=== PATIENT | male | born 1955 | race Caucasian/White ===

== ENCOUNTER 2020-06-30 19:01 | Emergency (ER) | payer MEDICARE, OTHER, SELFPAY ==
[2020-06-30 19:02] VITALS: BP 139/81; PULSE 97; RESP 16; TEMP 37.2; O2SAT 97; BMI 32.1
--- NOTE | 2020-06-30 19:18 | CT_ITS ---
PROCEDURE: CT ABDOMEN PELVIS W CON CLINICAL INDICATION: abd pain Mid abdominal pain with vomiting COMPARISON: No exams were available for comparison TECHNIQUE: IV Contrast: 75ML Isovue 370 Oral Contrast None Axial images obtained with sagittal and coronal reformats. All CT scans at the facility use one or more dose reduction, viz: automated exposure control, ma/kV adjustment per patient size (including targeted exams where dose is matched to indication, i.e. head), or iterative reconstruction technique. FINDINGS: LOWER THORAX: Atelectasis or scarring within the lingula. ABDOMEN & PELVIS: Fatty liver. Contracted gallbladder with enhancing versus hyperdense 8 mm ovoid lesion in the gallbladder on image 33 series 4. There is some mild stranding of the pericholecystic inferiorly and medially. The spleen, adrenal glands, and pancreas have an unremarkable appearance. There are 3 right renal cysts the largest in the lower pole at 7.7 cm. 2.3 cm left renal cyst noted in the lower pole. No renal or ureteral calculi. No hydronephrosis. No intestinal obstruction or free air. No evidence of appendicitis. There is colonic diverticulosis but no evidence of diverticulitis. There is tortuosity and ectasia of the infrarenal abdominal aorta with calcific plaque. The aorta measures up to 2.6 cm in AP dimension. Tortuosity/ectasia and calcific plaque also noted involving the iliac arteries. There is fusion of the SI joint superiorly. Degenerative changes lumbar spine. Small umbilical hernia containing fat. IMPRESSION: 1. Contracted gallbladder with enhancing versus hyperdense nodule in the posterior body of the gallbladder. There is also some mild stranding of the pericholecystic fat. Gallbladder ultrasound suggested for further evaluation. 2. Colonic diverticulosis. No evidence of diverticulitis. 3. Other nonacute incidental findings as detailed above. Dictated by: Conner Wade MD 07/01/2020 07:05 Conner Wade MD in [place] 07/01/2020 07:05
[2020-06-30 19:32] LABS: Basophils # 0.1 K/mm3 (0-0.2); Basophils % 0.5 % (0.1-2.0); Eosinophils # 0.1 K/mm3 (0.0-0.4); Eosinophils % 0.8 % (0.1-12.0); Hematocrit 43.3 % (42.0-52.0); Hemoglobin 13.9 g/dL (14.1-18.0); Lymphocytes # 1.4 K/mm3 (0.7-4.5); Mean Corpuscular HGB Conc 32.1 g/dL (31.8-35.4); Mean Corpuscular Hemoglobin 30.5 pg (27.0-31.2); Mean Platelet Volume 7.3 fl (7.4-10.4); Monocytes # 0.7 K/mm3 (0.1-1.0); Monocytes % 6.5 % (1.7-9.3); Neutrophils # 8.4 K/mm3 (1.8-7.8); Neutrophils % 79.3 % (37.0-80.0); Platelet Count 225 K/mm3 (142-424); Red Blood Count 4.56 M/mm3 (4.60-6.20); Red Cell Distribution Width 13.4 % (11.5-17.5); White Blood Count 10.6 K/mm3 (4.8-10.8)
[2020-06-30 19:42] LABS: Alanine Aminotransferase 254 U/L (12-78); Albumin Level 4.7 g/dl (3.5-5.0); Albumin/Globulin Ratio 1.5 (1.1-1.8); Alkaline Phosphatase 80 U/L (38-126); Amylase 66 U/L (30-110); Anion Gap 13.6 mEq/L (5-15); Aspartate Amino Transferase 172 U/L (17-59); Bilirubin,Total 1.2 mg/dl (0.2-1.3); Blood Urea Nitrogen 16 mg/dl (9-20); Calcium 9.6 mg/dl (8.4-10.2); Carbon Dioxide 27 mmol/L (22.0-30.0); Chloride 98 mmol/L (98-107); Creatinine Clearance Estimated 115 mL/min (50-200); Estimated Glomerular Filt Rate 75 ml/min (>60); GFR (African American) 91 ML/MIN (>60); Globulin 3.1 g/dL (1.3-3.2); Glucose 146 mg/dl (74-100); Lipase 76 U/L (23-300); Potassium 3.6 mmoL/L (3.5-5.1); Sodium 135 mmol/L (136-145); Total Protein,Serum 7.8 g/dl (6.3-8.2)
[2020-06-30 19:48] LABS: C-Reactive Protein 66.7 mg/L (0-4)
[2020-06-30 19:55] LABS: Erythrocyte Sedimentation Rate 18 mm/hr (0-20)
[2020-06-30 20:01] LABS: Procalcitonin 0.979 ng/mL (0.0-2.0)
--- NOTE | 2020-06-30 21:22 | [facility].EDNVD ---
ED Disposition Clinical Impression: Gallbladder disorder, AAA (abdominal aortic aneurysm) without rupture, Elevated LFTs Abdominal pain Qualifiers: Abdominal location: epigastric Qualified Code(s): R10.13 - Epigastric pain Disposition: Home, Self-Care Condition on Discharge: Good Instructions: DI for Acute Abdominal Pain Additional Instructions: call pcp in am for follow up and more testing Referrals: Max Yip [Primary Care Provider] - - Critical Care Critical Care Time: No Attestation: On 06/30/20, the high probability of a clinically significant, sudden or life threatening deterioration of the following system(s) required my full and direct attention, intervention and personal management. The time I documented below is in addition to time spent performing reported procedures but includes the following listed in this critical care notation. Medical Decision Making - Medical Records Medical records reviewed: Yes: I reviewed the patient's medical records. - Ricki Inquiry Pt receiving controlled substance: No Vital Signs: 06/30/20 19:02 Temperature 99.0 F Temperature Source Oral Pulse Rate [Right] 97 H Respiratory Rate 16 Blood Pressure [Right Arm] 139/81 Blood Pressure Mean [Right Arm] 100 02 Sat by Pulse Oximetry 97 Oxygen Delivery Method Room Air - Lab Data Lab results reviewed: Yes: I reviewed the patient's lab results. Lab Results 06/30/20 19:15: WBC 10.6, RBC 4.56 L, Hgb 13.9 L, Hct 43.3, MCV 95.0 H, MCH 30.5, MCHC 32.1, RDW 13.4, Plt Count 225, MPV 7.3 L, Neut % (Auto) 79.3, Lymph % (Auto) 13.0, Cataño % (Auto) 6.5, Eos % (Auto) 0.8, Baso % (Auto) 0.5, Neut # (Auto) 8.4 H, Lymph # (Auto) 1.4, Cataño # (Auto) 0.7, Eos # (Auto) 0.1, Baso # (Auto) 0.1, ESR 18 06/30/20 19:15: Sodium 135 L, Potassium 3.6, Chloride 98, Carbon Dioxide 27, Anion Gap 13.6, BUN 16, Creatinine 1.00, Estimated Creat Clear 115, Estimated GFR 75, Est GFR ( Amer) 91, Glucose 146 H, Calcium 9.6, Total Bilirubin 1.2, AST 172 H, ALT 254 H, Alkaline Phosphatase 80, C-Reactive Protein 66.7 H, Total Protein 7.8, Albumin 4.7, Globulin 3.1, Albumin/Globulin Ratio 1.5, Amylase 66, Lipase 76, Procalcitonin 0.979 Result diagrams: 06/30/20 19:15 06/30/20 19:15 Orders (Tests/Meds): ED MEDICATIONS Generic Name Dose Route Start Last Admin Trade Name Freq PRN Reason Stop Dose Admin Sodium Chloride 1,000 mls @ 999 mls/hr 06/30/20 19:30 06/30/20 19:32 Sod Chlor 0.9% 1000ml Bag IV 06/30/20 20:30 999 mls/hr .Q1H1M CARRIE Administration Sodium Chloride 8 ml 06/30/20 19:19 Sodium Chloride 0.9% 10ml Vial IV 07/30/20 19:18 NEEDED PRN dilute pepcid Discontinued Medications Generic Name Dose Route Start Last Admin Trade Name Freq PRN Reason Stop Dose Admin Famotidine 20 mg 06/30/20 19:19 06/30/20 19:32 Famotidine 20mg/2ml Vial IV 06/30/20 19:20 20 mg ONCE ONE Administration Iopamidol 75 ml 06/30/20 20:17 06/30/20 20:18 Iopamidol-370 (76%);100ml Bottle IV 06/30/20 20:18 75 ml ONCE ONE Administration Ketorolac Tromethamine 30 mg 06/30/20 19:19 06/30/20 19:32 Ketorolac 30mg/Ml Vial IV 06/30/20 19:20 30 mg ONCE ONE Administration Metoclopramide HCl 10 mg 06/30/20 19:19 06/30/20 19:32 Metoclopramide Hcl 10mg/2ml Vial IVP 06/30/20 19:20 10 mg ONCE ONE Administration Ondansetron HCl 4 mg 06/30/20 19:20 06/30/20 19:32 Ondansetron 4mg/2ml Vial IV 06/30/20 19:21 4 mg ONCE ONE Administration Sodium Chloride 10 ml 06/30/20 20:17 06/30/20 20:18 Sodium Chloride 0.9% 10ml Syr (Rad Only) IV 06/30/20 20:18 10 ml ONCE ONE Administration ORDERS Category Date Time Status CT abdomen pelvis w con Stat Cat Scan 06/30/20 19:18 Taken - CT Data CT Scan: Abdomen, Pelvis Time Received: 21:[address] Reviewed: Yes: I have viewed the radiologist's interpretation Preliminary Findings: Abnormal (see report ) Medical Decision Narrative:
[2020-06-30 21:50] VITALS: BP 134/80; PULSE 79; RESP 14; TEMP 37.1; O2SAT 98
== END 2020-06-30 21:51 | disposition home or self-care (01) ==
PROVIDERS: Emergency Provider Emergency Medicine; PCP Internal Medicine
DX: K82.9 Disease of gallbladder, unspecified (principal); I71.4 Abdominal aortic aneurysm, without rupture; R94.5 Abnormal results of liver function studies; E11.65 Type 2 diabetes mellitus with hyperglycemia
CPT/HCPCS: 74177; 80053; 82150; 83690; 84145; 85025; 85651; 86140; 96375; 99282; J2405; Q9967

== ENCOUNTER 2022-03-27 12:20 | Emergency (ER) | payer MEDICARE, OTHER, SELFPAY ==
--- NOTE | 2022-03-27 13:39 | EXP.UTC ---
Discharge Plan Disposition Patient Disposition: Home, Self-Care Condition: Good Prescriptions Prescriptions: New ondansetron 4 mg tablet,disintegrating 4 mg PO Q8H PRN (Reason: nausea and vomiting) Qty: 10 0RF Referrals Follow up/Referrals: Max Yip [Primary Care Provider] - See instructions Activity Restrictions/Add. Instructions Additional Instructions/Restrictions: Drink extra fluids with and between meals. If you have difficulty drinking, try very small amounts of water or suck on ice chips. ? Avoid fruit juices, as these do not replace minerals and can actually increase diarrhea. ? Children and adults can use sports drinks to replenish electrolytes. Younger children and infants should use products formulated for children, like oral rehydration solutions. ? Eat food in small amounts and let your stomach recover. ? Get lots of rest. You may feel tired or weak. ? No greasy or fried foods for the next 24-48 hours BRAT diet Bananas Rice Apples and [place] ? Make sure to drink plenty of liquids ? Return if needed ? Straight to ER if any life threatening symptoms ? Zofran as prescribed ? Follow up with family doctor in the next 48-72 hours if no improvement or any worsening of symptoms Clinical Impressions Clinical Impression: Nausea & vomiting Instructions Patient Instructions: Nausea and Vomiting-Adult, Ondansetron Discharge ED Provider: [facility] General Stated complaint: Vomiting, Headache Time Seen by Provider: 03/27/22 13:39 History of Present Illness Provider Complaint: Patient states that was up most of the night vomiting and he brought her to be seen and then he started with the vomiting thinks he may have caught a stomach bug from her Denies fever, denies chills states that he is just having some nausea and vomiting Related Data Previous Rx's Medication Instructions Recorded ondansetron 4 mg disintegrating 4 mg PO Q8H PRN nausea and 03/27/22 tablet vomiting #10 tabs Allergies Allergy/AdvReac Type Severity Reaction Status Date / Time codeine Allergy Verified 03/27/22 14:11 [facility] Disclaimer: The information contained in this section may have been updated after the patient was seen, as this information can be updated by other users. Social History Smoking Status: Former smoker alcohol intake: never current occupational status: employed Travel in the last 8 weeks: None ROS Obtained: Yes All systems reviewed & no additional complaints except as documented and Yes Systems reviewed as appropriate & no additional complaints except as documented Constitutional Constitutional: Reports system reviewed and no additional complaints, except as documented and Reports headache(s) (last night) ENT Ears, Nose, Mouth, and Throat: Reports system reviewed and no additional complaints, except as documented, Reports as per HPI and Reports headache(s) (last night) Respiratory Respiratory: Reports system reviewed and no additional complaints, except as documented and Reports as per HPI Gastrointestinal Gastrointestingal: Reports system reviewed and no additional complaints, except as documented, as per HPI, nausea and vomiting Neurologic Neurologic: Reports headache(s) (last night) Physical Exam General General appearance: alert and in no apparent distress ENT ENT exam: Present mucous membranes moist Respiratory Respiratory exam: Present normal lung sounds bilaterally; Absent respiratory distress or wheezes Cardiovascular Cardiovascular exam: Present regular rate, normal rhythm and normal heart sounds Abdominal Exam Abdominal exam: Present soft and normal bowel sounds; Absent distention or tenderness Neurological Exam Neurological exam: Present alert, oriented X3 and normal gait Medical Decision Making Ricki Inquiry Pt receiving controlled substance: No Ricki was queried for this
[2022-03-27 14:10] VITALS: BP 145/90; PULSE 110; RESP 16; TEMP 37.1; O2SAT 98; BMI 33.2
[2022-03-27 14:22] LABS: UTC Influenza A Antigen Negative (Negative); UTC Influenza B Antigen Negative (Negative)
[2022-03-27 15:20] VITALS: BP 145/90; PULSE 110; RESP 16; TEMP 37.1
== END 2022-03-27 15:21 | disposition home or self-care (01) ==
PROVIDERS: Emergency Provider Nurse Practitioner; PCP Internal Medicine
DX: R11.2 Nausea with vomiting, unspecified (principal)
CPT/HCPCS: 87804; 99212; G0463

== ENCOUNTER 2024-08-25 22:18 | Emergency (ER) | payer MEDICARE, OTHER, SELFPAY ==
[2024-08-25 22:31] VITALS: BP 153/92; PULSE 77; RESP 15; TEMP 36.6; O2SAT 94; BMI 33.2
--- NOTE | 2024-08-25 22:58 | XR_ITS ---
PROCEDURE INFORMATION: Exam: XR Right Humerus Exam date and time: 08/25/2024 11:47 PM Age: 69 years old Clinical indication: Injury or trauma; Fall; Blunt trauma (contusions or hematomas); Arm, upper; Right; Additional info: Fall, R shoulder/humerus pain, R hand pain, age>65 TECHNIQUE: Imaging protocol: Radiologic exam of the right humerus. Views: 2 or more views. COMPARISON: CR XR SHOULDER RT MIN 2V 08/25/2024 11:45 PM FINDINGS: Bones/joints: No acute fracture, dislocation or osseous destructive process. Soft tissues: No acute findings or radiopaque foreign body. IMPRESSION: No acute findings.
--- NOTE | 2024-08-25 22:58 | XR_ITS ---
PROCEDURE INFORMATION: Exam: XR Chest Exam date and time: 08/25/2024 11:43 PM Age: 69 years old Clinical indication: Injury or trauma; Fall; Blunt trauma (contusions or hematomas); Additional info: Fall, R shoulder/humerus pain, R hand pain, age>65 TECHNIQUE: Imaging protocol: Radiologic exam of the chest. Views: 2 views. COMPARISON: CT CERVICAL SPINE WO CON 08/25/2024 11:27 PM FINDINGS: Lungs: No acute findings or consolidation. Pleural spaces: No pleural effusion. No pneumothorax. Heart/Mediastinum: No acute findings or cardiomegaly. Bones/joints: No acute findings. IMPRESSION: No acute cardiopulmonary findings.
--- NOTE | 2024-08-25 22:58 | CT_ITS ---
PROCEDURE INFORMATION: Exam: CT Head Without Contrast Exam date and time: 08/25/2024 11:21 PM Age: 69 years old Clinical indication: Injury or trauma; Fall; Blunt trauma (contusions or hematomas); Additional info: Fall, R shoulder/humerus pain, R hand pain, age>65 TECHNIQUE: Imaging protocol: Computed tomography of the head without contrast. Radiation optimization: All CT scans at this facility use at least one of these dose optimization techniques: automated exposure control; mA and/or kV adjustment per patient size (includes targeted exams where dose is matched to clinical indication); or iterative reconstruction. COMPARISON: No relevant prior studies available. FINDINGS: Brain: [id number] atrophy. No intracranial hemorrhage. No mass. Few scattered foci of decreased attenuation within periventricular/subcortical white matter. No edema. Cerebral ventricles: No hydrocephalus. Paranasal sinuses: No acute sinusitis. Mastoid air cells: No significant effusion. Orbital cavities: Unremarkable as visualized. Bones: No acute fracture. Soft tissues: Unremarkable. Vasculature: Atherosclerotic disease of intracranial arteries. IMPRESSION: 1. No intracranial hemorrhage. 2. Probable chronic microvascular ischemic changes.
--- NOTE | 2024-08-25 22:58 | CT_ITS ---
PROCEDURE INFORMATION: Exam: CT Cervical Spine Without Contrast Exam date and time: 08/25/2024 11:27 PM Age: 69 years old Clinical indication: Injury or trauma; Fall; Blunt trauma; Additional info: Fall, R shoulder/humerus pain, R hand pain, age>65 TECHNIQUE: Imaging protocol: Computed tomography of the cervical spine without contrast. Radiation optimization: All CT scans at this facility use at least one of these dose optimization techniques: automated exposure control; mA and/or kV adjustment per patient size (includes targeted exams where dose is matched to clinical indication); or iterative reconstruction. COMPARISON: CT HEAD/BRAIN WO CON 08/25/2024 11:21 PM FINDINGS: Vertebrae: No acute fracture. Normal alignment. Lungs: Emphysematous changes. Vasculature: Atherosclerotic disease of carotid arteries. Soft tissues: Unremarkable. IMPRESSION: No fracture.
--- NOTE | 2024-08-25 22:58 | XR_ITS ---
PROCEDURE INFORMATION: Exam: XR Right Shoulder Exam date and time: 08/25/2024 11:45 PM Age: 69 years old Clinical indication: Injury or trauma; Fall; Blunt trauma (contusions or hematomas); Arm, upper; Right; Additional info: Fall, R shoulder/humerus pain, R hand pain, age>65 TECHNIQUE: Imaging protocol: Radiologic exam of the right shoulder. Views: 2 or more views. COMPARISON: CR Chest 08/25/2024 11:43 PM FINDINGS: Bones/joints: No acute fracture, dislocation or osseous destructive process. Soft tissues: No acute findings or radiopaque foreign body. IMPRESSION: No acute findings.
--- NOTE | 2024-08-25 22:58 | XR_ITS ---
PROCEDURE INFORMATION: Exam: XR Right Hand Exam date and time: 08/25/2024 11:21 PM Age: 69 years old Clinical indication: Injury or trauma; Fall; Blunt trauma (contusions or hematomas); Hand; Right; Additional info: Fall, R shoulder/humerus pain, R hand pain, age>65 TECHNIQUE: Imaging protocol: Radiologic exam of the right hand. Views: 3 or more views. COMPARISON: No relevant prior studies available. FINDINGS: Bones/joints: Small calcification or age indeterminate avulsion fracture along head of third middle phalanx. No dislocation. Soft tissues: Unremarkable. IMPRESSION: Small calcification or age indeterminate avulsion fracture along head of third middle phalanx.
--- NOTE | 2024-08-25 22:58 | XR_ITS ---
PROCEDURE INFORMATION: Exam: XR Right Wrist Exam date and time: 08/25/2024 11:23 PM Age: 69 years old Clinical indication: Injury or trauma; Fall; Blunt trauma (contusions or hematomas); Arm, upper; Right; Additional info: Fall, R shoulder/humerus pain, R hand pain, age>65 TECHNIQUE: Imaging protocol: Radiologic exam of the right wrist. Views: 3 or more views. COMPARISON: CR XR HAND RT MIN 3V 08/25/2024 11:21 PM FINDINGS: Bones/joints: Small linear calcification or age indeterminate avulsion fracture along triquetrum. No dislocation. Soft tissues: Unremarkable. IMPRESSION: Small linear calcification or age indeterminate avulsion fracture along triquetrum.
--- NOTE | 2024-08-25 23:11 | XR_ITS ---
PROCEDURE INFORMATION: Exam: XR Right Knee Exam date and time: 08/25/2024 11:52 PM Age: 69 years old Clinical indication: Injury or trauma; Fall; Blunt trauma; Knee; Right; Additional info: Fall, pain TECHNIQUE: Imaging protocol: Radiologic exam of the right knee. Views: 3 views. COMPARISON: No relevant prior studies available. FINDINGS: Tubes, catheters and devices: No evidence of prosthetic loosening. Bones/joints: Knee prosthesis is identified without associated acute findings. No acute fracture, dislocation or osseous destructive process. Soft tissues: No acute finding or radiopaque foreign body. IMPRESSION: Status post knee prosthesis. No acute findings.
--- NOTE | 2024-08-25 23:11 | XR_ITS ---
PROCEDURE INFORMATION: Exam: XR Right Femur Exam date and time: 08/25/2024 11:54 PM Age: 69 years old Clinical indication: Injury or trauma; Fall; Blunt trauma; Knee; Right; Additional info: Fall, pain TECHNIQUE: Imaging protocol: Radiologic exam of the right femur. Views: 2 views. COMPARISON: CR XR KNEE RT 3V 08/25/2024 11:52 PM FINDINGS: Bones/joints: Status post knee prosthesis. No acute fracture, dislocation or osseous destructive process. Soft tissues: No acute findings or radiopaque foreign body. IMPRESSION: 1. No acute findings. 2. Status post right knee prosthesis.
--- NOTE | 2024-08-25 23:15 | ED_ITS ---
Discharge Plan Disposition Patient Disposition: Home, Self-Care Condition: Good Prescriptions Prescriptions: No Action ondansetron 4 mg tablet,disintegrating 4 mg PO Q8H PRN (Reason: nausea and vomiting) Qty: 10 0RF Referrals Follow up/Referrals: Max Yip [Primary Care Provider, Medical] - See instructions Henry Mustafa DO [Staff Physician, Orthopedics] - See instructions Referral Note: R shoulder pain after fall, suspect rotator cuff Activity Restrictions/Add. Instructions Additional Instructions/Restrictions: You were evaluated in the ER and are believed to be appropriate for discharge at this time. Take Tylenol or ibuprofen if needed for aches and pains, do not exceed the recommended dose on the bottle. Drink water and eat a small snack each time you take these medications to avoid side effects. As discussed you could also try [id number] Salonpas patches. Call Dr. Mustafa's office and make an appointment for reevaluation of the right shoulder. Also make an appointment with your primary care doctor for reevaluation. Return to the ER with any new, worsening, or otherwise concerning symptoms. Clinical Impressions Clinical Impression: Fall, Acute pain of right shoulder Print Language Print Language: Irish Discharge ED Provider: Lenka Medina General Adult HPI <Radha Huertas DO - Last Filed: 08/25/24 23:18> General Chief complaint: Fall Stated complaint: A/O fell on concrete hurt rt shoulder, rt knee Time Seen by Provider: 08/25/24 22:35 Mode of Arrival: Ambulatory Source of Information: Patient and Spouse Description of Symptoms (Recalled from ER Triage Doc. by RN): Patient ambulatory to ED with fall approx 2030 in parking lot of grocery store. Patient states that his shopping cart started to roll away from him and he started to jeffrey after it when he tripped on concrete and fell on right side. Patient denies hitting head, but landed on right shoulder and knee. Patient with abrasion to right knee, and limited ROM to right shoulder. Pain 5/10. Denies taking blood thinners at this time. History of Present Illness HPI narrative: This patient is a 69-year-old male with history of CAD status post tenting on aspirin presenting to the emergency department for evaluation concern for right shoulder pain, difficulty externally rotating his right arm, right hand pain, and right knee pain after mechanical ground-level fall. Patient reports that his grocery cart got away from him at the store around 8:30 PM, and he ran after it. He states that he tripped and fell on the concrete, landing mostly on his right side. He did not hit his head or lose consciousness. He complains of right shoulder pain and right knee pain. He is still able to ambulate with intact range of motion. No numbness, tingling, or other concerns. Related Data Previous Rx's ?Medication ?Instructions ?Recorded ondansetron 4 mg disintegrating 4 mg PO Q8H PRN nausea and 03/27/22 tablet vomiting #10 tabs Allergies Allergy/AdvReac Type Severity Reaction Status Date / Time codeine Allergy Verified 03/27/22 14:11 [facility] <Radha Huertas DO - Last Filed: 08/25/24 23:18> [facility] Disclaimer: The information contained in this section may have been updated after the patient was seen, as this information can be updated by other users. Social History Smoking Status: Former smoker alcohol intake: never current occupational status: employed Travel in the last 8 weeks?: None Have you lived/traveled outside [place] in past 30 days?: No Contact w/someone who lives/traveled outside [place] past 30 days?: No Exposure to someone with infectious disease in past 14 days?: No Do you have a fever (greater than 100.4 F or 38 C)?: No Have you tested positive for COVID-19?: No Exposed to someone with COVID-19 in past 14 days?: No Do you have a sore throat?: No Do you have a cough?: No Do you have any weakness?: No Do you have any diarrhea?: No Are you experiencing any unusual bleeding?: No Do you have any muscle aches/pain?: No Do you have any abdominal pain?: No Are you experiencing loss of taste or smell?: No Other Medical History Have you received the Flu Vaccine for this season: Yes Have you received the Pneumonia Vaccine: Yes <Radha Huertas DO - Last Filed: 08/25/24 23:18> ROS Obtained: Yes All systems reviewed & no additional complaints except as documented Physical Exam <Radha Huertas DO - Last Filed: 08/25/24 23:18> General General appearance: alert and in no apparent distress Head Head exam: atraumatic and normocephalic Eye Eye exam: Present normal appearance, PERRL and EOMI ENT ENT exam: Present normal exam, normal oropharynx, mucous membranes moist and normal external ear exam Neck Neck exam: Present normal inspection, full ROM and trachea midline; Absent tenderness Chest Chest inspection: Present normal inspection and symmetric chest wall rise; Absent tenderness Respiratory Respiratory exam: Present normal lung sounds bilaterally; Absent respiratory distress, wheezes, stridor or accessory muscle use Cardiovascular Cardiovascular exam: Present regular rate and normal rhythm Abdominal Exam Abdominal exam: Present soft; Absent distention, tenderness or guarding Extremities Exam Extremities exam: Present tenderness, normal capillary refill and other (Tender to palpation of the proximal right humerus and the ulnar aspect of the right hand. Neurovascularly intact distally. Limitations and external rotation of the right upper extremity at the shoulder joint. Right knee tenderness with no obvious deformity. Superficial abrasion to the knee.); Absent full ROM or edema Back Exam Back exam: Present normal inspection and full ROM; Absent tenderness Neurological Exam Neurological exam: Present alert, oriented X3, CN II-XII intact and normal gait; Absent motor sensory deficit Psychiatric Psychiatric exam: Present normal affect and normal mood Skin Skin exam: Present warm and dry Medical Decision Making <Radha Huertas, DO - Last Filed: 08/25/24 23:18> Medical Records Medical records reviewed: Yes I reviewed the patient's medical records. Screening: Per USPSTF and CDC recommendations, given the prevalence of disease in our region, it is our hospital?s policy to screen for HIV and viral Hepatitis for all patients aged 18 and over and those with ongoing risk factors. Ricki Inquiry Pt receiving controlled substance: No Vital Signs: 08/25/24 22:31 08/26/24 00:46 Temperature 97.8 F 98.0 F Temperature Source Oral Oral Pulse Rate 77 Pulse Rate [Right] 77 Respiratory Rate 15 17 Blood Pressure 162/83 H Blood Pressure [Right Arm] 153/92 H Blood Pressure Mean [Right Arm] 112 Blood Pressure Source Automatic Cuff Blood Pressure Source [Right Arm] Automatic Cuff Blood Pressure Position Sitting Blood Pressure Position [Right Arm] Sitting 02 Sat by Pulse Oximetry 94 L Oxygen Delivery Method Room Air Room Air Lab Data Lab results reviewed: Yes I reviewed the patient's lab results. Orders (Tests/Meds): ORDERS Category Date Time Status CT cervical spine wo con Stat Cat Scan 08/25/24 22:[address] head/brain wo con Stat Cat Scan 08/25/24 22:58 Completed CXR 2 view (NOT portable) [XR chest 2V] Stat Exams 08/25/24 22:58 Completed Femur XR right 2 views [XR femur RT 2V] Stat Exams 08/25/24 23:11 Completed Hand XR right minimum 3 views [XR hand RT min 3V] Stat Exams 08/25/24 22:58 Completed Humerus XR right [XR humerus RT] Stat Exams 08/25/24 22:58 Completed Knee XR right 3 views [XR knee RT 3V] Stat Exams 08/25/24 23:11 Completed Shoulder XR right miminum 2 views [XR shoulder RT min Exams 08/25/24 22:58 Completed 2V] Stat Wrist XR right minimum 3 views [XR wrist RT min 3V] Exams 08/25/24 22:58 Completed Stat Medical Decision Narrative: In summary, this patient is a 69-year-old male presenting to the Emergency Department for evaluation of right shoulder pain, right hand pain, right knee pain after mechanical ground-level fall. Differential diagnoses considered include but are not limited to fracture, rotator cuff injury, polytrauma, intracranial hemorrhage, C-spine fracture. Ruling out the most morbid conditions drove assessment. It should be noted patient's history includes CAD status post tenting on aspirin which may or may not be at goal therapy. This complicates all aspects of care by increasing patient's risk for morbidity. On exam, the patient is well-appearing. He is sitting upright in no acute distress. He has limitations in external rotation of the right upper extremity at the shoulder joint as well as tenderness to palpation of the right shoulder/proximal humerus. He also has tenderness palpation of the ulnar aspect of the right hand but is neurovascular intact distally in all 4 extremities. He has tenderness to palpation of the right knee as well as a superficial abrasion, but no obvious deformity. No significant femoral or tib-fib tenderness to palpation. Workup included CT head, CT C-spine without contrast, chest x-ray, right shoulder x-ray, right humerus x-ray, right femur x-ray, right knee x-ray. He declines need for pain medication at this time. Patient care was signed out the oncoming provider, Dr. Medina, pending imaging and disposition. <Lenka Medina MD - Last Filed: 08/26/24 03:36> Vital Signs: 08/25/24 22:31 08/26/24 00:46 Temperature 97.8 F 98.0 F Temperature Source Oral Oral Pulse Rate 77 Pulse Rate [Right] 77 Respiratory Rate 15 17 Blood Pressure 162/83 H Blood Pressure [Right Arm] 153/92 H Blood Pressure Mean [Right Arm] 112 Blood Pressure Source Automatic Cuff Blood Pressure Source [Right Arm] Automatic Cuff Blood Pressure Position Sitting Blood Pressure Position [Right Arm] Sitting 02 Sat by Pulse Oximetry 94 L Oxygen Delivery Method Room Air Room Air Orders (Tests/Meds): ORDERS Category Date Time Status CT cervical spine wo con Stat Cat Scan 08/25/24 22:[address] head/brain wo con Stat Cat Scan 08/25/24 22:58 Completed CXR 2 view (NOT portable) [XR chest 2V] Stat Exams 08/25/24 22:58 Completed Femur XR right 2 views [XR femur RT 2V] Stat Exams 08/25/24 23:11 Completed Hand XR right minimum 3 views [XR hand RT min 3V] Stat Exams 08/25/24 22:58 Completed Humerus XR right [XR humerus RT] Stat Exams 08/25/24 22:58 Completed Knee XR right 3 views [XR knee RT 3V] Stat Exams 08/25/24 23:11 Completed Shoulder XR right miminum 2 views [XR shoulder RT min Exams 08/25/24 22:58 Completed 2V] Stat Wrist XR right minimum 3 views [XR wrist RT min 3V] Exams 08/25/24 22:58 Completed Stat Medical Decision Narrative: In summary, this patient is a 69-year-old male presenting to the Emergency Department for evaluation of right shoulder pain, right hand pain, right knee pain after mechanical ground-level fall. Differential diagnoses considered include but are not limited to fracture, rotator cuff injury, polytrauma, intracranial hemorrhage, C-spine fracture. Ruling out the most morbid conditions drove assessment. It should be noted patient's history includes CAD status post tenting on aspirin which may or may not be at goal therapy. This complicates all aspects of care by increasing patient's risk for morbidity. On exam, the patient is well-appearing. He is sitting upright in no acute distress. He has limitations in external rotation of the right upper extremity at the shoulder joint as well as tenderness to palpation of the right peyman ulder/proximal humerus. He also has tenderness palpation of the ulnar aspect of the right hand but is neurovascular intact distally in all 4 extremities. He has tenderness to palpation of the right knee as well as a superficial abrasion, but no obvious deformity. No significant femoral or tib-fib tenderness to palpation. Workup included CT head, CT C-spine without contrast, chest x-ray, right shoulder x-ray, right humerus x-ray, right femur x-ray, right knee x-ray. He declines need for pain medication at this time. Patient care was signed out the oncoming provider, Dr. Medina, pending imaging and disposition. Medina: Upon my assumption of care patient is stable and resting comfortably. I agree with the assessment and plan from Dr. Huertas. I personally interpreted CT head and C-spine do not appreciate acute traumatic injury, see radiology read for final interpretation. X-rays were all reviewed, radiology reads, done concern for possible third digit injury as well as for triquetrium injury on the right. See radiology reads for full interpretations. On reassessment patient has no pain or tenderness in the wrist or finger where there are abnormalities, these are much more likely to be calcifications and not related to patient's traumatic injury tonight. I do not believe he requires further intervention for these since they do not correlate clinically. Patient is a GCS 15 and appropriate for discharge at this time. He is comfortable with this plan. Though patient does not have osseous injury of the right shoulder he does still have pain and I have concerns for possible rotator cuff injury. He was given instructions on gentle range of motion exercises to avoid frozen shoulder and instructed on conservative management. He was provided orthopedic referral for follow-up. Patient was given instructions on symptomatic management, follow up instructions, and return precautions for the emergency department. Patient indicated understanding and was discharged in stab le condition. Critical Care <Radha Huertas, DO - Last Filed: 08/25/24 23:18> Critical Care Time Critical Care Time: No
[2024-08-26 00:46] VITALS: BP 162/83; PULSE 77; RESP 17; TEMP 36.7; O2SAT 95
== END 2024-08-26 00:54 | disposition home or self-care (01) ==
PROVIDERS: Emergency Provider Emergency Medicine; PCP Internal Medicine
DX: M25.511 Pain in right shoulder (principal); M25.561 Pain in right knee; W01.10XA Fall on same level from slipping, tripping and stumbling with subsequent striking against unspecified object, initial encounter
CPT/HCPCS: 70450; 71046; 72125; 73030; 73060; 73110; 73130; 73552; 73562; 99285